=== PATIENT | female | born 1995 | race Caucasian/White ===

== ENCOUNTER 2018-02-22 19:30 | Emergency (ER) | payer OTHER ==
--- NOTE | 2018-02-22 19:55 | ER Document Report ---
HPI - HPI Onset: Other - Earlier this week Onset/Duration: Gradual Pain Level: 5 Context: 23-year-old female developed a genital painful rash after having intercourse with a new partner without a condom. No history of STDs. No vaginal discharge. Complaining of some inguinal lymph nodes that are swollen. Associated Symptoms: None Exacerbated by: Walking Relieved by: Denies Similar symptoms previously: No Recently seen / treated by doctor: No - ROS ROS below otherwise negative: Yes Systems Reviewed and Negative: Yes All other systems reviewed and negative Past Medical History - General Information source: Patient - Social History Smoking Status: Never Smoker Frequency of alcohol use: None Drug Abuse: None Lives with: Family Family History: Reviewed & Not Pertinent - Medical History Medical History: Negative Surgical Hx: Negative Vertical Provider Document - CONSTITUTIONAL Agree With Documented VS: Yes Exam Limitations: No Limitations - INFECTION CONTROL TRAVEL OUTSIDE OF THE [place] IN LAST 30 DAYS: No - HEENT HEENT: Normocephalic - NECK Neck: Supple - GI/ABDOMEN Gastrointestinal: Abdomen Soft, Abdomen Non-Tender - REPRODUCTIVE Notes: Labia majora and minora ulcerations with some yellow exudate. No discharge at the introitus. Mildly enlarged bilateral inguinal lymph nodes. - NEURO Level of Consciousness: Awake, Alert - DERM Integumentary: Rash - See above Course - Vital Signs Vital signs: Temp Pulse Resp BP Pulse Ox 98.9 F 92 18 115/79 99 02/22/18 19:35 02/22/18 19:35 02/22/18 19:35 02/22/18 19:35 02/22/18 19:35 Discharge - Discharge Clinical Impression: Genital ulcers Condition: Good Disposition: HOME, SELF-CARE Instructions: Acetaminophen, Acyclovir ([facility]), Herpes Simplex ([facility]), Ibuprofen ( General) ([facility]), Topical Lidocaine ([facility]) Additional Instructions: Your herpes culture will not be back till at least Saturday you can call for the results at that time. Take the acyclovir 400 mg 3 times a day for 10 days If you want to wait till Saturday you can call me at phone number will be Warm compress and sitz bath Bacitracin Return to the emergency room if worse Prescriptions: Acyclovir [Acyclovir 400 mg Tablet] 400 mg PO TID #30 tablet Forms: Return to Work
[2018-02-22] MEDS ORDERED: LIDOCAINE 2% JELLY 5 ML TUBE TOP ONE (20:05)
[2018-02-22] MEDS ORDERED: IBUPROFEN 800 MG TABLET PO ONE (20:06)
[2018-02-22] MEDS ORDERED: ACYCLOVIR 200 MG CAPSULE PO ONE (20:09)
[2018-02-22 20:29] VITALS: BP 128/79
== END 2018-02-22 20:26 | disposition home or self-care (01) ==
LOC: ER 19:30
DX: N76.6 Ulceration of vulva (principal); R59.0 Localized enlarged lymph nodes
CPT/HCPCS: 87250; 99282